=== PATIENT | male | born 1965 | race African-American/Black ===

== ENCOUNTER 2019-07-23 15:10 | Emergency (ER) | payer BC, OTHER ==
[~2019-07-23] VITALS: Ht 182.9 cm; Wt 108.9 kg
[~2019-07-23 15:10] MED LIST: MULTIVITAMINS1 EAC7; NAPROSYN500 MG PO; NORCO 5-325 TA1 EACH PO; PENICILLIN VK500 M1 PO; VEETIDS 250MG250 M1 PO
[2019-07-23 16:06] LABS: ABSOLUTE NEUTROPHILS 2.7 thou/uL (1.4-8.2); BASOPHILS 0.5 % (0.0-2.0); EOSINOPHILS 2.5 % (0.0-3.0); HEMATOCRIT 45.6 % (42.0-52.0); HEMOGLOBIN 15.3 gm/dL (14.0-18.0); LYMPHOCYTES 30.8 % (24.0-44.0); MCH 30.3 pg (26.0-34.0); MCHC 33.6 g/dL (28.0-37.0); MCV 90.2 fL (80.0-100.0); MONOCYTES 10.8 % (1.0-8.0); PLATELET COUNT 299 thou/uL (150-400); POLYS 55.4 % (36.0-66.0); RBC 5.06 mil/uL (4.50-6.00); RDW 13.9 % (10.5-14.5); WBC 4.9 thou/uL (4.0-11.0)
[2019-07-23 16:13] LABS: ANION GAP 9 mmol/L (7-16); BUN 11 mg/dL (7-18); CALCIUM 9.5 mg/dL (8.5-10.1); CHLORIDE 103 mmol/L (98-107); CO2 26 mmol/L (21-32); CREATININE 1.2 mg/dL (0.7-1.3); GLUCOSE 100 mg/dL (74-106); POTASSIUM 3.7 mmol/L (3.5-5.1); SODIUM 138 mmol/L (136-145)
[2019-07-23 16:23] LABS: ALBUMIN 3.9 g/dL (3.4-5.0); LIPASE 274 U/L (73-393); SGOT 17 U/L (15-37); SGPT 32 U/L (30-65); TOTAL BILIRUBIN 0.5 mg/dL (<0.1-1.0); TOTAL PROTEIN 7.9 g/dL (6.4-8.2); TROPONIN-I <0.06 ng/mL (<0.06)
[2019-07-23 16:45] LABS: URINE BILIRUBIN NEGATIVE (Negative); URINE BLOOD NEGATIVE (Negative); URINE CLARITY CLEAR; URINE COLOR YELLOW; URINE GLUCOSE-RANDOM* NEGATIVE (Negative); URINE KETONES TRACE (Negative); URINE LEUKOCYTES-REFLEX NEGATIVE (Negative); URINE NITRITE-REFLEX NEGATIVE (Negative); URINE PROTEIN (DIPSTICK) NEGATIVE (Negative); URINE SPECIFIC GRAVITY 1.025 (1.005-1.035); URINE UROBILINOGEN 0.2 E.U./dl (0.2-1.0)
[2019-07-23 17:28] LABS: APTT 27.7 Seconds (24.5-32.8)
[2019-07-23] MEDS ORDERED: BENTYL 20 MG TA20 M1 PO (18:40)
[2019-07-23] MEDS ORDERED: ZOFRAN ODT4 MG PO (18:40)
[2019-07-23] MEDS ORDERED: NORCO 5-325 TA1 EAC1 PO (18:40)
[2019-07-23 18:46] VITALS: BP 165/94
== END 2019-07-23 18:46 | disposition home or self-care (01) ==
LOC: ER 15:10
PROVIDERS: Emergency Medicine
DX: K62.5 Hemorrhage of anus and rectum (principal); R10.30 Lower abdominal pain, unspecified; R10.31 Right lower quadrant pain; R10.32 Left lower quadrant pain; R19.7 Diarrhea, unspecified; M79.631 Pain in right forearm; F17.210 Nicotine dependence, cigarettes, uncomplicated